=== PATIENT | female | born 1950 | race Caucasian/White ===

== ENCOUNTER 2019-06-12 13:51 | Emergency (ER) | payer MEDICARE, MEDICAID ==
[~2019-06-12] VITALS: Ht 157.5 cm; Wt 81.6 kg
--- NOTE | 2019-06-12 14:17 | ED Chest Pain ---
General Stated Complaint: CHEST PAIN Source: patient Exam Limitations: no limitations History of Present Illness Date Seen by Provider: Jun 12, 2019 Time Seen by Provider: 14:00 Initial Comments The patient is a very pleasant obese 69-year-old female who presents for evaluation of left-sided chest pain. She states this is been bothering her for the last 3-4 days. She took 4 baby aspirin as morning and had no effect on the pain. She believes that she has had 2 cardiac stents placed in the past but is unsure. She denies fevers or chills, cough, diaphoresis, dizziness, back or flank pain, abdominal pain, palpitations, nausea or vomiting, or syncope. She is alert and oriented 4, calm, and appears to be in no distress. She denies any re cent injuries to her chest wall as far she can recall. Timing/Duration: 3-4 days Severity/Quality: moderate Location: other (left sternal border) Modifying Factors: improves with lying down (at night makes it worse), improves with movement ASA po BLOCKER HEATED METAL FORMS: Yes Allergies and Home Medications Allergies Coded Allergies: Penicillins (Verified Allergy, Unknown, swelling, 06/12/19) Patient Home Medication List Home Medication List Reviewed: Yes Review of Systems Review of Systems Constitutional: no symptoms reported EENTM: No Symptoms Reported Respiratory: No Symptoms Reported Cardiovascular: No Symptoms Reported, Chest Pain Genitourinary: No Symptoms Reported Musculoskeletal: no symptoms reported Skin: no symptoms reported Psychiatric/Neurological: No Symptoms Reported Endocrine: No Symptoms Reported Hematologic/Lymphatic: No Symptoms Reported All Other Systems Reviewed Negative Unless Noted: Yes Past [id number]-[id number] Hx Past Med/Social Hx: Reviewed Nursing Past Med/Soc Hx Physical Exam Vital Signs Vital Signs - First Documented 06/12/19 13:55 Temp 99.5 Pulse 104 Resp 25 B/P (MAP) 163/98 (119) Pulse Ox 97 Capillary Refill : Height, Weight, BMI Height: '" Weight: lbs. oz. kg; BMI Method: General Appearance: No Apparent Distress, WD/WN, Obese HEENT: PERRL/EOMI, Pharynx Normal Neck: Full Range of Motion, Normal Inspection, Supple Respiratory: Chest Non Tender, Lungs Clear, Normal Breath Sounds, No Accessory Muscle Use, No Respiratory Distress Cardiovascular: Regular Rate, Rhythm, No Edema, No JVD, No Murmur, Normal Peripheral Pulses Gastrointestinal: Normal Bowel Sounds, No Pulsatile Mass, Non Tender, Soft Extremity: Normal Capillary Refill, Non Tender Neurologic/Psychiatric: Alert, Oriented x3, No Motor/Sensory Deficits, Normal Mood/Affect, collections director II-XII Norm as Tested Skin: Normal Color, Warm/Dry Lymphatic: No Adenopathy Focused Exam Lactate Level 06/12/19 14:08: Lactic Acid Level 2.35*H Lactic Acid Level Laboratory Tests Test 06/12/19 14:08 Lactic Acid Level 2.35 MMOL/L (0.50-2.00) *H Progress/Results/Core Measures Results/Orders Lab Results Laboratory Tests Test 06/12/19 14:08 Range/Units White Blood Count 10.9 4.3-11.0 10^3/uL Red Blood Count 4.71 4.35-5.85 10^6/uL Hemoglobin 14.5 11.5-16.0 G/DL Hematocrit 43 35-52 % Mean Corpuscular Volume 91 80-99 FL Mean Corpuscular Hemoglobin 31 25-34 PG Mean Corpuscular Hemoglobin Concent 34 32-36 G/DL Red Cell Distribution Width 12.8 10.0-14.5 % Platelet Count 235 130-400 10^3/uL Mean Platelet Volume 10.8 H 7.4-10.4 FL Neutrophils (%) (Auto) 63 42-75 % Lymphocytes (%) (Auto) 27 12-44 % Monocytes (%) (Auto) 6 0-12 % Eosinophils (%) (Auto) 3 0-10 % Basophils (%) (Auto) 1 0-10 % Neutrophils # (Auto) 6.9 1.8-7.8 X 10^3 Lymphocytes # (Auto) 3.0 1.0-4.0 X 10^3 Monocytes # (Auto) 0.6 0.0-1.0 X 10^3 Eosinophils # (Auto) 0.3 0.0-0.3 10^3/uL Basophils # (Auto) 0.1 0.0-0.1 10^3/uL Sodium Level 140 135-145 MMOL/L Potassium Level 3.8 3.6-5.0 MMOL/L Chloride Level 102 98-107 MMOL/L Carbon Dioxide Level 21 21-32 MMOL/L Anion Gap 17 H 5-14 MMOL/L Blood Urea Nitrogen 28 H 7-18 MG/DL Creatinine 0.87 0.60-1.30 MG/DL Estimat Glomerular Filtration Rate > 60 BUN/Creatinine Ratio 32 Glucose Level 279 H 70-105 MG/DL Lactic Acid Level 2.35 *H 0.50-2.00 MMOL/L Calcium Level 9.3 8.5-10.1 MG/DL Corrected Calcium 9.4 8.5-10.1 MG/DL Magnesium Level 1.9 1.6-2.4 MG/DL Total Bilirubin 0.5 0.1-1.0 MG/DL Aspartate Amino Transf (AST/SGOT) 46 H 5-34 U/L Alanine Aminotransferase (ALT/SGPT) 62 H 0-55 U/L Alkaline Phosphatase 126 40-136 U/L Myoglobin 21.0 10.0-92.0 NG/ML Troponin I < 0.30 <0.30 NG/ML Pro-B-Type Natriuretic Peptide 124.0 H <75.0 PG/ML Total Protein 7.6 6.4-8.2 GM/DL Albumin 3.9 3.2-4.5 GM/DL My Orders Orders - HALLIE LOPEZ DO Cbc With Automated Diff (06/12/19 13:56) Magnesium (06/12/19 13:56) Chest 1 View Ap/Pa Only (06/12/19 13:56) Ekg Tracing (06/12/19 13:56) Comprehensive Metabolic Panel (06/12/19 13:56) Myoglobin Serum (06/12/19 13:56) O2 (06/12/19 13:56) Monitor-Rhythm Ecg Trace Only (06/12/19 13:56) Ed Iv/Invasive Line Start (06/12/19 13:56) Troponin I (06/12/19 13:56) Probnp Fs (06/12/19 13:56) Lactic Acid Analyzer (06/12/19 14:01) Blood Culture (06/12/19 14:01) Blood Culture (06/12/19 14:13) Lidocaine 2% Viscous 15 Ml (Xylocaine Vi (06/12/19 15:00) Antacid Suspension (Mylanta Suspension (06/12/19 15:00) Medications Given in ED Current Medications Medications Dose Ordered Sig/Skip Route Start Time Stop Time Status Last Admin Dose Admin Al Hydrox/Mg Hydrox/Simethicone 30 ml ONCE ONCE PO 8/15/19 15:00 06/12/19 15:01 DC 06/12/19 15:04 30 ML Lidocaine HCl 15 ml ONCE ONCE PO 06/12/19 15:00 06/12/19 15:01 DC 06/12/19 15:04 15 ML Vital Signs/I&O 06/12/19 13:55 Temp 99.5 Pulse 104 Resp 25 B/P (MAP) 163/98 (119) Pulse Ox 97 Progress Progress Note : Progress Note @1515 - patient consented to the lab and imaging results. She is not of clinical evidence of sepsis. She states that she feels complete relief after the GI cocktail and has no complaints. As her pain is been present for 3-4 days I would expect the cardiac enzymes to be elevated if the source of the pain was from c ardiac ischemia. The patient is asking to go home and is stable for discharge at this time. Comment @1356 - Sinus tachycardia, rate of 104, normal axis, no acute ischemic findings noted, no STEMI, reviewed and interpreted by myself Departure Impression Primary Impression: Atypical chest pain Additional Impression: GERD (gastroesophageal reflux disease) Disposition: HOME, SELF-CARE Condition: Stable Departure-Patient Inst. Decision time for Depature: 15:20 Referrals: FLORINDA GARCIA MD (PCP/Family) Primary Care Physician Patient Instructions: Chest Pain That Is Not Caused by the Heart (DC), Acid Reflux (Gastroesophageal Reflux Disease) in Adults Add. Discharge Instructions: To the medicine as prescribed. Follow up with your doctor the next 2-3 days. Return to emergency department for new or worsening symptoms. Scripts Pantoprazole Sodium (Protonix) 40 Mg Tablet. 40 MG PO DAILY for 20 Days, #20 TAB Prov: HALLIE LOPEZ DO 06/12/19 HALLIE LOPEZ DO Jun 12, 2019 14:17
[2019-06-12 14:18] LABS: HEMATOCRIT 43 % (35-52); HEMOGLOBIN 14.5 G/DL (11.5-16.0); MEAN CORPUSCULAR HEMOGLOBIN 31 PG (25-34); MEAN CORPUSCULAR VOLUME 91 FL (80-99); WHITE BLOOD COUNT 10.9 10^3/uL (4.3-11.0)
[2019-06-12 14:19] LABS: BASOPHILS # (AUTO) 0.1 10^3/uL (0.0-0.1); BASOPHILS % (AUTO) 1 % (0-10); EOSINOPHILS # (AUTO) 0.3 10^3/uL (0.0-0.3); EOSINOPHILS % (AUTO) 3 % (0-10); LYMPHOCYTES % (AUTO) 27 % (12-44); MEAN CORPUSCULAR HGB CONC 34 G/DL (32-36); MEAN PLATELET VOLUME 10.8 FL (7.4-10.4); MONOCYTES # (AUTO) 0.6 X 10^3 (0.0-1.0); MONOCYTES % (AUTO) 6 % (0-12); NEUTROPHILS # (AUTO) 6.9 X 10^3 (1.8-7.8); NEUTROPHILS % (AUTO) 63 % (42-75); PLATELET COUNT 235 10^3/uL (130-400); RED CELL DISTRIBUTION WIDTH 12.8 % (10.0-14.5)
--- NOTE | 2019-06-12 14:31 | Diagnostic Imaging Report ---
INDICATION: Chest pain and fatigue. No prior examination available for comparison. FINDINGS: The heart size, mediastinal configuration, and pulmonary vascularity are within normal limits. There is no pleural effusion, pneumothorax, or pneumonia. The osseous structures are unremarkable. IMPRESSION: No acute cardiopulmonary abnormality. Dictated by: Dictated on workstation # [id number]
[2019-06-12 14:34] LABS: ALKALINE PHOSPHATASE 126 U/L (40-136); BILIRUBIN,TOTAL 0.5 MG/DL (0.1-1.0); BUN/CREATININE RATIO 32; CALCIUM 9.3 MG/DL (8.5-10.1); CARBON DIOXIDE 21 MMOL/L (21-32); CHLORIDE 102 MMOL/L (98-107); CREATININE SERUM 0.87 MG/DL (0.60-1.30); GFR ESTIMATED > 60; GLUCOSE 279 MG/DL (70-105); MAGNESIUM 1.9 MG/DL (1.6-2.4); POTASSIUM 3.8 MMOL/L (3.6-5.0); SODIUM 140 MMOL/L (135-145)
[2019-06-12 14:35] LABS: ALANINE AMINOTRANSFERASE 62 U/L (0-55); ALBUMIN 3.9 GM/DL (3.2-4.5); TOTAL PROTEIN 7.6 GM/DL (6.4-8.2)
[2019-06-12] MEDS ORDERED: LIDOCAINE 2% VISCOUS 15 ML UDC PO ONE (15:00)
[2019-06-12] MEDS ORDERED: ANTACID SUSP 30 ML UDC (MYLANTA) PO ONE (15:00)
[2019-06-12] MEDS ORDERED: PANT40TA2 PO (15:24)
[2019-06-12 15:34] VITALS: BP 101/58
== END 2019-06-12 15:41 | disposition home or self-care (01) ==
LOC: ER FS 13:53
DX: K21.9 Gastro-esophageal reflux disease without esophagitis (principal); Z95.5 Presence of coronary angioplasty implant and graft; Z88.0 Allergy status to penicillin
CPT/HCPCS: 36415; 71045; 80053; 83605; 83735; 83874; 83880; 84484; 85025; 87040; 93005; 93041